=== PATIENT | male | born 1960 | race Caucasian/White ===

== ENCOUNTER → 2018-08-29 | Outpatient (CLI) | payer BC ==
[~2018-08-29] MED LIST: B CO1TAB14 PO; CYAN1TAB29 PO; METH36TA4 PO
== END | disposition home or self-care (01) ==
LOC: STAR 10:23
PROVIDERS: ATTEND Orthopaedic Surgery
DX: Z02.9 Encounter for administrative examinations, unspecified (principal)

== ENCOUNTER 2018-09-02 11:45 | Day surgery (SDC) | payer BC ==
[~2018-09-02] VITALS: Ht 172.7 cm; Wt 82.7 kg
[~2018-09-02 11:45] MED LIST changes: +LIDOCAINE 1%-EPI 1:100K, 20ML ONE
[2018-09-02] MEDS ORDERED: LACTATED RINGERS 1,000 ML IV SCH (11:53)
[2018-09-02] MEDS ORDERED: MIDAZOLAM 1 MG/ML, 2ML ONE (12:42)
[2018-09-02] MEDS ORDERED: FENTANYL PF 100 MCG/2ML ONE ×2 (12:42→14:22)
[2018-09-02] MEDS ORDERED: ROPIvacaine/PF 0.5%, 30 ML ONE (13:09)
[2018-09-02] MEDS ORDERED: ONDANSETRON 2MG/ML, 2ML ONE (13:30)
[2018-09-02] MEDS ORDERED: CEFAZOLIN 1,000 MG ONE (13:30)
[2018-09-02] MEDS ORDERED: DEXAMETHASONE 4 MG/ML, 1ML ONE (13:30)
[2018-09-02] MEDS ORDERED: PROPOFOL 10 MG/ML, 20ML ONE (13:30)
[2018-09-02] MEDS ORDERED: ALBUTEROL SULFATE 2.5 MG/3 ML NPPB PRN (14:00)
[2018-09-02] MEDS ORDERED: MEPERIDINE/PF 25MG/0.5ML IVPush PRN (14:00)
[2018-09-02] MEDS ORDERED: LABETALOL 5MG/ML, 20ML IV PRN (14:00)
[2018-09-02] MEDS ORDERED: PROMETHAZINE 25 MG/ML, 1ML IV PRN (14:00)
[2018-09-02] MEDS ORDERED: hydrALAzine 20 MG/ML, 1ML IV PRN (14:00)
[2018-09-02] MEDS ORDERED: KETOROLAC 30 MG/1 ML IV PRN (14:00)
[2018-09-02] MEDS ORDERED: ACETAMINOPHEN 325 MG TABLET PO PRN (14:00)
[2018-09-02] MEDS ORDERED: DIAZEPAM 5 MG/ML, 2ML IVPush PRN (14:00)
[2018-09-02] MEDS ORDERED: HYDROmorphone 2 MG/ML, 1ML IVPush PRN (14:00)
[2018-09-02] MEDS ORDERED: OXYcodone 5 MG/5 ML ORAL.SOL UDC PO PRN (14:00)
[2018-09-02] MEDS ORDERED: OXYcodone 5 MG/5 ML ORAL.SOL UDC ONE (14:22)
[2018-09-02] MEDS ORDERED: KETOROLAC 30 MG/1 ML ONE (14:22)
[2018-09-02] MEDS: FENTANYL PF 100 MCG/2ML IV PRN ×2 (14:26→14:48)
[2018-09-02] MEDS ORDERED: HYDROmorphone 2 MG/ML, 1ML ONE (14:49)
== END 2018-09-02 17:45 | disposition home or self-care (01) ==
LOC: OUT 11:45
PROVIDERS: ATTEND Orthopaedic Surgery
DX: S83.242A Other tear of medial meniscus, current injury, left knee, initial encounter (principal); M65.862 Other synovitis and tenosynovitis, left lower leg; M17.12 Unilateral primary osteoarthritis, left knee; Z88.0 Allergy status to penicillin; Z88.8 Allergy status to other drugs, medicaments and biological substances; Z79.899 Other long term (current) drug therapy; Z72.89 Other problems related to lifestyle; X58.XXXA Exposure to other specified factors, initial encounter; Y93.89 Activity, other specified; Y92.89 Other specified places as the place of occurrence of the external cause; Y99.8 Other external cause status
CPT/HCPCS: 29881; J0690; J1100; J1170; J1885; J2250; J2405; J2704; J2795; J3010; J3490; J7120